=== PATIENT | female | born 1930 | race Caucasian/White ===

== ENCOUNTER → 2016-08-06 | Outpatient (REF) | payer MEDICARE, OTHER ==
[2016-08-06 18:18] LABS: PERCENT SATURATION 7.3 % (13.2-37.4)
== END ==
LOC: M LAB REF 16:43
PROVIDERS: ATTEND Internal Medicine Nephrology
DX: N18.9 Chronic kidney disease, unspecified (principal); D63.1 Anemia in chronic kidney disease

== ENCOUNTER 2016-08-19 10:47 | Outpatient (CLI) | payer MEDICARE, OTHER ==
[2016-08-19] MEDS ORDERED: IRON SUCROSE 25 MG in NS 50 ML IV ONE (12:00)
[2016-08-19] MEDS ORDERED: IRON SUCROSE 475 MG in NS 250 ML IV ONE (12:00)
[2016-08-19] MEDS ORDERED: CINA30TA PO (12:26)
[2016-08-19] MEDS ORDERED: SPIR25TA2 PO (12:26)
[2016-08-19] MEDS ORDERED: ALLO100T PO (12:26)
[2016-08-19] MEDS ORDERED: HYDR-4267 PO (12:26)
[2016-08-19] MEDS ORDERED: CARV12.5 PO (12:26)
[2016-08-19] MEDS ORDERED: ASPI325T PO (12:26)
[2016-08-19] MEDS ORDERED: ALBU17IN INH (12:26)
[2016-08-19] MEDS ORDERED: ATOR40TA PO (12:26)
[2016-08-19] MEDS ORDERED: FERR150C PO (12:26)
[2016-08-19] MEDS ORDERED: POTA10CA PO (12:26)
[2016-08-19] MEDS ORDERED: VITA200015 PO (12:26)
[2016-08-19] MEDS ORDERED: COQ-100C2 PO (12:26)
[2016-08-19] MEDS ORDERED: CALC1CAP31 PO (12:26)
[2016-08-19] MEDS ORDERED: ALBU83IN INH (12:26)
[2016-08-19] MEDS ORDERED: AMLO10TA2 PO (12:26)
[2016-08-19] MEDS ORDERED: VITA100T20 PO (12:26)
[2016-08-19] MEDS ORDERED: FURO40TA2 PO (12:26)
[2016-08-19] MEDS ORDERED: NITR4TASL SL (12:26)
[2016-08-19] MEDS ORDERED: OMEP20CA3 PO (12:45)
[2016-08-19] MEDS ORDERED: COLA100C PO (12:45)
[2016-08-19] MEDS ORDERED: OXYB10TA PO (12:45)
== END 2016-08-19 15:50 | disposition home or self-care (01) ==
LOC: M INFU 10:47
PROVIDERS: ATTEND Internal Medicine Nephrology
DX: D50.9 Iron deficiency anemia, unspecified (principal); Z79.899 Other long term (current) drug therapy; Z79.82 Long term (current) use of aspirin; Z88.8 Allergy status to other drugs, medicaments and biological substances; Z88.5 Allergy status to narcotic agent
CPT/HCPCS: 96365; 96366; J1756

== ENCOUNTER → 2017-06-11 | Outpatient (REF) | payer MEDICARE, OTHER ==
[~2017-06-11] MED LIST: ALBU17IN INH; ALBU83IN INH; ALLO100T PO; AMLO10TA2 PO; ASPI325T PO; ATOR40TA75 PO; CALC1CAP31 PO; CARV12.5 PO; CINA30TA PO; COLA100C5 PO; COQ-100C2 PO; FERR150C PO; FURO40TA2 PO; HYDR-3911 PO; NITR4TASL SL; OMEP20CA3 PO; OXYB10TA PO; POTA10CA PO; SPIR25TA2 PO; VITA100T20 PO; VITA200015 PO
[2017-06-11 14:40] LABS: CREATININE FOR GFR 2.05 MG/DL (0.55-1.02); GLOMERULAR FILTRATION RATE 24.3 (>32)
[2017-06-11 14:49] LABS: POTASSIUM SERUM 5.3 MEQ/L (3.5-5.1)
== END ==
LOC: M SFHCPLAZ 10:59
PROVIDERS: ATTEND Family Medicine
DX: R06.09 Other forms of dyspnea (principal); I25.118 Atherosclerotic heart disease of native coronary artery with other forms of angina pectoris
CPT/HCPCS: 36415; 80048; 83880; G0463

== ENCOUNTER 2017-07-15 14:02 | Emergency (ER) | payer MEDICARE, OTHER ==
[2017-07-15] MEDS: CARVedilol 6.25 MG TAB PO (15:02)
[2017-07-15] MEDS: **hydrALAZINE** 10 MG TAB PO (15:02)
[2017-07-15 15:45] LABS: HEMATOCRIT 36.1 % (36.0-47.0); HEMOGLOBIN 11.9 g/dl (12.0-16.0); MEAN CORPUSCULAR VOLUME 87.8 fl (80.0-96.0); PLATELET COUNT, AUTOMATED 251 10^3/uL (150-450); RED BLOOD COUNT 4.11 10^6/uL (4.00-5.40); RED CELL DISTRIBUTION WIDTH 14.6 % (11.5-14.5); WHITE BLOOD COUNT 8.5 10^3/uL (4.0-10.0)
[2017-07-15 16:10] LABS: ANION GAP 6 MEQ/L (8-16); BLOOD UREA NITROGEN 49 MG/DL (7-18); CALCIUM LEVEL 9.8 MG/DL (8.8-10.2); CARBON DIOXIDE LEVEL 30 MEQ/L (21-32); CHLORIDE LEVEL 102 MEQ/L (98-107); GLOMERULAR FILTRATION RATE 34.8 (>32); GLUCOSE, FASTING 170 MG/DL (83-110); SODIUM LEVEL 138 MEQ/L (136-145)
[2017-07-15 16:21] LABS: INR 0.96; PROTHROMBIN TIME 12.9 SECONDS (12.4-14.5)
== END 2017-07-15 17:12 | disposition home or self-care (01) ==
LOC: M ED 14:02
DX: S00.81XA Abrasion of other part of head, initial encounter (principal); S00.83XA Contusion of other part of head, initial encounter; W19.XXXA Unspecified fall, initial encounter; Y92.018 Other place in single-family (private) house as the place of occurrence of the external cause; Y93.89 Activity, other specified; Y99.8 Other external cause status; E11.9 Type 2 diabetes mellitus without complications; J44.9 Chronic obstructive pulmonary disease, unspecified; I25.10 Atherosclerotic heart disease of native coronary artery without angina pectoris; J45.909 Unspecified asthma, uncomplicated; Z95.0 Presence of cardiac pacemaker; Z95.5 Presence of coronary angioplasty implant and graft
CPT/HCPCS: 73564

== ENCOUNTER → 2017-07-27 | Outpatient (CLI) | payer MEDICARE, OTHER ==
[2017-07-27 14:57] LABS: CHOLESTEROL LEVEL 174 MG/DL (<200); CHOLESTEROL RISK RATIO 2.351 (<5); HDL CHOLESTEROL 74 MG/DL (>40); LDL CHOLESTEROL 65.8 MG/DL (<100); NON-HDL-C 100 MG/DL; TRIGLYCERIDES LEVEL 171 MG/DL (<150)
== END ==
LOC: M RAD 11:52
DX: I65.21 Occlusion and stenosis of right carotid artery (principal); R29.6 Repeated falls
CPT/HCPCS: 73030

== ENCOUNTER → 2017-08-09 | Outpatient (REF) | payer MEDICARE, OTHER ==
[2017-08-09 16:57] LABS: CPK CREATINE PHOSPHOKINASE 41 U/L (26-192)
[2017-08-09 17:09] LABS: MYOGLOBIN 71 NG/ML (13-71)
== END ==
LOC: M SFHCPLAZ 11:13
DX: M25.511 Pain in right shoulder (principal); R60.0 Localized edema; S00.8 Superficial injury of other parts of head; S00.83XS Contusion of other part of head, sequela
CPT/HCPCS: 82550

== ENCOUNTER → 2017-08-13 | Outpatient (CLI) | payer MEDICARE, OTHER ==
[2017-08-13 10:12] LABS: MYOGLOBIN 70 NG/ML (13-71)
[2017-08-13 10:12] LABS: CPK CREATINE PHOSPHOKINASE 32 U/L (26-192)
== END ==
LOC: M RAD 06:47
DX: M25.511 Pain in right shoulder (principal); R60.0 Localized edema
CPT/HCPCS: 73030

== ENCOUNTER 2017-11-01 13:03 | Inpatient (IN) | payer MEDICARE, OTHER ==
[2017-11-01] MEDS: HEPARIN SOD (PORCINE) 5000 UNITS/ML VIAL SC ×2 (14:00→21:17)
[2017-11-01 15:04] LABS: BASO # 0.1 10^3/uL (0.0-0.2); BASO % 0.6 % (0.0-1.0); EOS # 0.1 10^3/uL (0.0-0.50); EOS % 1.1 % (0.0-3.0); HEMATOCRIT 34.2 % (36.0-47.0); HEMOGLOBIN 10.8 g/dl (12.0-15.5); IMMATURE GRANULOCYTE % 0.7 % (0-3.0); LYMPH # 1.8 10^3/uL (1.5-4.5); LYMPH % 15.8 % (24.0-44.0); MEAN CORPUSCULAR HEMOGLOBIN 27.6 pg (27.0-33.0); MEAN CORPUSCULAR HGB CONC 31.6 g/dl (32.0-36.5); MEAN CORPUSCULAR VOLUME 87.2 fl (80.0-96.0); MONO # 0.9 10^3/uL (0.0-0.8); MONO % 8.5 % (0.0-5.0); NEUTROPHILS # 8.1 10^3/uL (1.8-7.7); NEUTROPHILS % 73.3 % (36.0-66.0); PLATELET COUNT, AUTOMATED 283 10^3/uL (150-450); RED BLOOD COUNT 3.92 10^6/uL (4.00-5.40); RED CELL DISTRIBUTION WIDTH 15.6 % (11.5-14.5); WHITE BLOOD COUNT 11.1 10^3/uL (4.0-10.0)
[2017-11-01 15:08] LABS: ANION GAP 5 MEQ/L (8-16); BLOOD UREA NITROGEN 71 MG/DL (7-18); CALCIUM LEVEL 9.7 MG/DL (8.8-10.2); CARBON DIOXIDE LEVEL 23 MEQ/L (21-32); CHLORIDE LEVEL 106 MEQ/L (98-107); CK-MB VALUE MASS 1.5 NG/ML (<3.6); CPK CREATINE PHOSPHOKINASE 41 U/L (26-192); CREATININE FOR GFR 3.26 MG/DL (0.55-1.30); GLOMERULAR FILTRATION RATE 14.2 (>32); GLUCOSE, FASTING 130 MG/DL (70-100); MB/CK RELATIVE INDEX 3.65 (< OR =4); NT-PRO BNP 8014 PG/ML (<450); SODIUM LEVEL 134 MEQ/L (136-145); TROPONIN I 0.02 NG/ML (< 0.10)
[2017-11-01] MEDS: SOD POLYSTYRENE SULFONATE SUSP 15 GM/60 ML UD PO (15:15)
[2017-11-01] MEDS: ALBUTEROL SULFATE 2.5 MG/0.5 ML INH NEB SOLN NEB (15:23)
[2017-11-01] MEDS: DEXTROSE 50% 50 ML SYRINGE IV (15:25)
[2017-11-01] MEDS: HumuLIN R (REGULAR) INSULIN (NovoLIN R) **100U/ML** PER UNIT SC (15:25)
[2017-11-01] MEDS: IPRATROPIUM 0.5MG/ALBUTEROL 2.5MG INH SOL UD 3ML (DUONEB)(J7620) NEB ×2 (16:00→20:46)
[2017-11-01] MEDS: FUROSEMIDE 40 MG/4 ML VIAL (J1940) IV (16:26)
[2017-11-01] MEDS ORDERED: ONDANSETRON 4MG/2ML VIAL (J2405) IV (16:30)
[2017-11-01] MEDS ORDERED: ACETAMINOPHEN TAB 650MG DOSE (2X325MG) PO (16:30)
[2017-11-01 16:58] LABS: ALBUMIN 3.4 GM/DL (3.2-5.2); PHOSPHORUS LEVEL 4.5 MG/DL (2.5-4.9)
[2017-11-01] MEDS ORDERED: NITROGLYCERIN 0.4 MG SUBL TABLET SL (17:00)
[2017-11-01] MEDS: **hydrALAZINE** 50 MG TAB PO ×2 (17:00→20:44)
[2017-11-01] MEDS: amLODIPine 10 MG TAB PO (20:14)
[2017-11-01] MEDS: OMEPRAZOLE 20 MG CAP PO (20:16)
[2017-11-01] MEDS: CARVedilol 12.5 MG TAB PO (20:17)
[2017-11-01] MEDS: oxyBUTYnin *DITROPAN XL* 5 MG TABCR PO (20:49)
[2017-11-01] MEDS: LevoFLOXacin IV 500 MG in APPROPRIATE DILUENT 1 EA IV (20:49)
[2017-11-01 20:55] LABS: ALBUMIN 3.1 GM/DL (3.2-5.2); ANION GAP 9 MEQ/L (8-16); BLOOD UREA NITROGEN 70 MG/DL (7-18); CALCIUM LEVEL 9.2 MG/DL (8.8-10.2); CARBON DIOXIDE LEVEL 21 MEQ/L (21-32); CHLORIDE LEVEL 107 MEQ/L (98-107); CREATININE FOR GFR 3.49 MG/DL (0.55-1.30); GLOMERULAR FILTRATION RATE 13.1 (>32); GLUCOSE, FASTING 170 MG/DL (70-100); PHOSPHORUS LEVEL 4.4 MG/DL (2.5-4.9); SODIUM LEVEL 137 MEQ/L (136-145)
[2017-11-01 20:56] LABS: POTASSIUM SERUM 5.3 MEQ/L (3.5-5.1)
[2017-11-02] MEDS: IPRATROPIUM 0.5MG/ALBUTEROL 2.5MG INH SOL UD 3ML (DUONEB)(J7620) NEB ×4 (05:23→16:00)
[2017-11-02] MEDS: HEPARIN SOD (PORCINE) 5000 UNITS/ML VIAL SC ×3 (05:31→21:35)
[2017-11-02] MEDS: SOD POLYSTYRENE SULFONATE SUSP 15 GM/60 ML UD PO (05:52)
[2017-11-02 06:51] LABS: HEMATOCRIT 32.7 % (36.0-47.0); HEMOGLOBIN 10.4 g/dl (12.0-15.5); MEAN CORPUSCULAR HEMOGLOBIN 27.2 pg (27.0-33.0); MEAN CORPUSCULAR HGB CONC 31.8 g/dl (32.0-36.5); MEAN CORPUSCULAR VOLUME 85.4 fl (80.0-96.0); PLATELET COUNT, AUTOMATED 244 10^3/uL (150-450); RED BLOOD COUNT 3.83 10^6/uL (4.00-5.40); RED CELL DISTRIBUTION WIDTH 15.4 % (11.5-14.5); WHITE BLOOD COUNT 10.5 10^3/uL (4.0-10.0)
[2017-11-02 07:07] LABS: ALBUMIN 2.9 GM/DL (3.2-5.2); ANION GAP 8 MEQ/L (8-16); BLOOD UREA NITROGEN 67 MG/DL (7-18); CALCIUM LEVEL 9.6 MG/DL (8.8-10.2); CARBON DIOXIDE LEVEL 23 MEQ/L (21-32); CHLORIDE LEVEL 109 MEQ/L (98-107); CREATININE FOR GFR 2.99 MG/DL (0.55-1.30); GLOMERULAR FILTRATION RATE 15.7 (>32); GLUCOSE, FASTING 122 MG/DL (70-100); PHOSPHORUS LEVEL 4.2 MG/DL (2.5-4.9); POTASSIUM SERUM 4.1 MEQ/L (3.5-5.1); SODIUM LEVEL 140 MEQ/L (136-145)
[2017-11-02] MEDS: VENLAFAXINE **XR** 75MG CAPSULE PO (08:33)
[2017-11-02] MEDS: OMEPRAZOLE 20 MG CAP PO (08:33)
[2017-11-02] MEDS: ASPIRIN 325 MG TAB PO (08:33)
[2017-11-02] MEDS: ATORVASTATIN 20 MG TAB PO (08:33)
[2017-11-02] MEDS: amLODIPine 10 MG TAB PO (08:34)
[2017-11-02] MEDS: ALLOPURINOL 100 MG TAB PO (08:34)
[2017-11-02] MEDS: **hydrALAZINE** 50 MG TAB PO ×4 (08:34→21:33)
[2017-11-02] MEDS: CARVedilol 12.5 MG TAB PO ×2 (08:34→21:34)
[2017-11-02] MEDS: oxyBUTYnin *DITROPAN XL* 5 MG TABCR PO (21:34)
[2017-11-03 05:08] LABS: HEMATOCRIT 32.7 % (36.0-47.0); HEMOGLOBIN 10.4 g/dl (12.0-15.5); MEAN CORPUSCULAR HEMOGLOBIN 27.1 pg (27.0-33.0); MEAN CORPUSCULAR HGB CONC 31.8 g/dl (32.0-36.5); MEAN CORPUSCULAR VOLUME 85.2 fl (80.0-96.0); PLATELET COUNT, AUTOMATED 232 10^3/uL (150-450); RED BLOOD COUNT 3.84 10^6/uL (4.00-5.40); RED CELL DISTRIBUTION WIDTH 15.4 % (11.5-14.5)
[2017-11-03] MEDS: HEPARIN SOD (PORCINE) 5000 UNITS/ML VIAL SC ×3 (05:20→22:00)
[2017-11-03 05:23] LABS: ALBUMIN 2.7 GM/DL (3.2-5.2); ANION GAP 7 MEQ/L (8-16); BLOOD UREA NITROGEN 54 MG/DL (7-18); CALCIUM LEVEL 9.3 MG/DL (8.8-10.2); CARBON DIOXIDE LEVEL 25 MEQ/L (21-32); CHLORIDE LEVEL 110 MEQ/L (98-107); CREATININE FOR GFR 2.05 MG/DL (0.55-1.30); GLOMERULAR FILTRATION RATE 24.3 (>32); GLUCOSE, FASTING 124 MG/DL (70-100); PHOSPHORUS LEVEL 3.4 MG/DL (2.5-4.9); SODIUM LEVEL 142 MEQ/L (136-145)
[2017-11-03] MEDS: IPRATROPIUM 0.5MG/ALBUTEROL 2.5MG INH SOL UD 3ML (DUONEB)(J7620) NEB ×3 (07:22→15:13)
[2017-11-03] MEDS: ASPIRIN 325 MG TAB PO (09:30)
[2017-11-03] MEDS: amLODIPine 10 MG TAB PO (09:30)
[2017-11-03] MEDS: **hydrALAZINE** 50 MG TAB PO ×4 (09:31→21:59)
[2017-11-03] MEDS: ATORVASTATIN 20 MG TAB PO (09:31)
[2017-11-03] MEDS: ALLOPURINOL 100 MG TAB PO (09:31)
[2017-11-03] MEDS: OMEPRAZOLE 20 MG CAP PO (09:31)
[2017-11-03] MEDS: VENLAFAXINE **XR** 75MG CAPSULE PO (09:31)
[2017-11-03] MEDS: CARVedilol 12.5 MG TAB PO ×2 (09:32→22:00)
[2017-11-03] MEDS ORDERED: SLF 3 ML SYR IV (11:45)
[2017-11-03] MEDS: SLF 3 ML SYR IV ×2 (14:00→22:00)
[2017-11-03] MEDS: LevoFLOXacin 250 MG TABLET PO (17:57)
[2017-11-03] MEDS ORDERED: LevoFLOXacin IV 250 MG in APPROPRIATE DILUENT 1 EA IV (18:00)
[2017-11-03] MEDS: oxyBUTYnin *DITROPAN XL* 5 MG TABCR PO (22:00)
[2017-11-04] MEDS: SLF 3 ML SYR IV ×2 (05:31→14:00)
[2017-11-04] MEDS: HEPARIN SOD (PORCINE) 5000 UNITS/ML VIAL SC (05:31)
[2017-11-04 05:48] LABS: HEMATOCRIT 30.8 % (36.0-47.0); HEMOGLOBIN 9.6 g/dl (12.0-15.5); MEAN CORPUSCULAR HEMOGLOBIN 26.7 pg (27.0-33.0); MEAN CORPUSCULAR HGB CONC 31.2 g/dl (32.0-36.5); MEAN CORPUSCULAR VOLUME 85.8 fl (80.0-96.0); PLATELET COUNT, AUTOMATED 242 10^3/uL (150-450); RED BLOOD COUNT 3.59 10^6/uL (4.00-5.40); RED CELL DISTRIBUTION WIDTH 15.3 % (11.5-14.5); WHITE BLOOD COUNT 9.2 10^3/uL (4.0-10.0)
[2017-11-04 06:06] LABS: ALBUMIN 2.6 GM/DL (3.2-5.2); ANION GAP 6 MEQ/L (8-16); BLOOD UREA NITROGEN 53 MG/DL (7-18); CALCIUM LEVEL 9.2 MG/DL (8.8-10.2); CARBON DIOXIDE LEVEL 26 MEQ/L (21-32); CHLORIDE LEVEL 111 MEQ/L (98-107); CREATININE FOR GFR 1.96 MG/DL (0.55-1.30); GLOMERULAR FILTRATION RATE 25.6 (>32); GLUCOSE, FASTING 142 MG/DL (70-100); NT-PRO BNP 4410 PG/ML (<450); PHOSPHORUS LEVEL 3.3 MG/DL (2.5-4.9); POTASSIUM SERUM 4.2 MEQ/L (3.5-5.1); SODIUM LEVEL 143 MEQ/L (136-145)
[2017-11-04] MEDS: IPRATROPIUM 0.5MG/ALBUTEROL 2.5MG INH SOL UD 3ML (DUONEB)(J7620) NEB ×2 (07:42)
[2017-11-04] MEDS: amLODIPine 10 MG TAB PO (09:05)
[2017-11-04] MEDS: OMEPRAZOLE 20 MG CAP PO (09:05)
[2017-11-04] MEDS: ASPIRIN 325 MG TAB PO (09:05)
[2017-11-04] MEDS: CARVedilol 12.5 MG TAB PO (09:05)
[2017-11-04] MEDS: ATORVASTATIN 20 MG TAB PO (09:05)
[2017-11-04] MEDS: VENLAFAXINE **XR** 75MG CAPSULE PO (09:05)
[2017-11-04] MEDS: ALLOPURINOL 100 MG TAB PO (09:05)
[2017-11-04] MEDS: **hydrALAZINE** 50 MG TAB PO (09:06)
[2017-11-04] MEDS: FUROSEMIDE 20 MG TAB PO (11:41)
== END 2017-11-04 14:28 | disposition home health service (06) | DRG 682 ==
LOC: M PCU 16:20 → M ED 13:03 → M ED INP 16:20
DX: N17.9 Acute kidney failure, unspecified (principal); J18.9 Pneumonia, unspecified organism; I50.31 Acute diastolic (congestive) heart failure; I13.0 Hypertensive heart and chronic kidney disease with heart failure and stage 1 through stage 4 chronic kidney disease, or unspecified chronic kidney disease; E87.5 Hyperkalemia; N18.3 Chronic kidney disease, stage 3 (moderate); R00.1 Bradycardia, unspecified; R91.8 Other nonspecific abnormal finding of lung field; E78.5 Hyperlipidemia, unspecified; I73.9 Peripheral vascular disease, unspecified; Z90.710 Acquired absence of both cervix and uterus; Z90.722 Acquired absence of ovaries, bilateral; Z95.0 Presence of cardiac pacemaker; Z98.49 Cataract extraction status, unspecified eye; Z85.820 Personal history of malignant melanoma of skin; Z79.899 Other long term (current) drug therapy; Z88.8 Allergy status to other drugs, medicaments and biological substances; Z88.5 Allergy status to narcotic agent; Z86.73 Personal history of transient ischemic attack (TIA), and cerebral infarction without residual deficits

== ENCOUNTER → 2017-11-10 | Outpatient (REF) | payer MEDICARE, OTHER ==
[2017-11-10 16:08] LABS: BASO # 0.1 10^3/uL (0.0-0.2); BASO % 0.5 % (0.0-1.0); EOS # 0.2 10^3/uL (0.0-0.50); EOS % 1.1 % (0.0-3.0); HEMATOCRIT 36.5 % (36.0-47.0); HEMOGLOBIN 11.5 g/dl (12.0-15.5); IMMATURE GRANULOCYTE % 0.5 % (0-3.0); LYMPH # 1.4 10^3/uL (1.5-4.5); LYMPH % 9.1 % (24.0-44.0); MEAN CORPUSCULAR HGB CONC 31.5 g/dl (32.0-36.5); MEAN CORPUSCULAR VOLUME 85.7 fl (80.0-96.0); MONO # 1.1 10^3/uL (0.0-0.8); NEUTROPHILS # 12.3 10^3/uL (1.8-7.7); NEUTROPHILS % 81.8 % (36.0-66.0); PLATELET COUNT, AUTOMATED 306 10^3/uL (150-450); RED BLOOD COUNT 4.26 10^6/uL (4.00-5.40); RED CELL DISTRIBUTION WIDTH 15.9 % (11.5-14.5); WHITE BLOOD COUNT 15.1 10^3/uL (4.0-10.0)
[2017-11-10 16:32] LABS: TOTAL 25(OH) VITAMIN D 20.5 NG/ML (30.0-100.0)
[2017-11-10 16:33] LABS: ANION GAP 10 MEQ/L (8-16); BLOOD UREA NITROGEN 40 MG/DL (7-18); CALCIUM LEVEL 9.9 MG/DL (8.8-10.2); CARBON DIOXIDE LEVEL 29 MEQ/L (21-32); CHLORIDE LEVEL 104 MEQ/L (98-107); CREATININE FOR GFR 1.79 MG/DL (0.55-1.30); FREE T4 1.01 NG/DL (0.76-1.46); GLOMERULAR FILTRATION RATE 28.4 (>32); GLUCOSE, FASTING 131 MG/DL (70-100); NT-PRO BNP 1461 PG/ML (<450); POTASSIUM SERUM 3.7 MEQ/L (3.5-5.1); SODIUM LEVEL 143 MEQ/L (136-145); VITAMIN B12 LEVEL 1620 PG/ML (247-911)
== END ==
LOC: M SFHCPLAZ 12:31
DX: I50.9 Heart failure, unspecified (principal); D64.9 Anemia, unspecified; R41.3 Other amnesia; N17.9 Acute kidney failure, unspecified; Z79.899 Other long term (current) drug therapy
CPT/HCPCS: 84443

== ENCOUNTER 2017-12-27 08:44 | Emergency (ER) | payer MEDICARE, OTHER | END 2017-12-27 11:30 | disposition home or self-care (01) | LOC: M ED 08:44 | DX: S29.011A Strain of muscle and tendon of front wall of thorax, initial encounter (principal); W19.XXXA Unspecified fall, initial encounter; Y92.099 Unspecified place in other non-institutional residence as the place of occurrence of the external cause; Y93.89 Activity, other specified; Y99.9 Unspecified external cause status; I48.91 Unspecified atrial fibrillation; I10 Essential (primary) hypertension; J44.9 Chronic obstructive pulmonary disease, unspecified; Z95.0 Presence of cardiac pacemaker; M85.80 Other specified disorders of bone density and structure, unspecified site; Z79.82 Long term (current) use of aspirin; Z79.899 Other long term (current) drug therapy; Z88.5 Allergy status to narcotic agent; Z88.8 Allergy status to other drugs, medicaments and biological substances | CPT/HCPCS: 71101 ==

== ENCOUNTER 2018-01-05 13:35 | Inpatient (IN) | payer MEDICARE, OTHER ==
[2018-01-05] MEDS: NS 1,000 ML IV (14:35)
[2018-01-05] MEDS: ASPIRIN 81 MG CHEW TABLET PO (14:35)
[2018-01-05 15:12] LABS: BASO % 0.2 % (0.0-1.0); EOS % 0.1 % (0.0-3.0); HEMOGLOBIN 11.8 g/dl (12.0-15.5); LYMPH # 1.7 10^3/uL (1.5-4.5); LYMPH % 12.6 % (24.0-44.0); MEAN CORPUSCULAR HEMOGLOBIN 25.2 pg (27.0-33.0); MEAN CORPUSCULAR HGB CONC 30.3 g/dl (32.0-36.5); MEAN CORPUSCULAR VOLUME 83.2 fl (80.0-96.0); MONO # 1.2 10^3/uL (0.0-0.8); NEUTROPHILS # 10.3 10^3/uL (1.8-7.7); NEUTROPHILS % 77.1 % (36.0-66.0); PLATELET COUNT, AUTOMATED 311 10^3/uL (150-450); RED BLOOD COUNT 4.69 10^6/uL (4.00-5.40); RED CELL DISTRIBUTION WIDTH 17.1 % (11.5-14.5); WHITE BLOOD COUNT 13.3 10^3/uL (4.0-10.0)
[2018-01-05 15:23] LABS: INR 0.98; PROTHROMBIN TIME 13.1 SECONDS (12.1-14.4)
[2018-01-05 15:39] LABS: LACTIC ACID SEPSIS PROTOCOL 1.2 MMOL/L (0.4-2.0)
[2018-01-05 15:40] LABS: ALBUMIN 3.1 GM/DL (3.2-5.2); ALBUMIN/GLOBULIN RATIO 0.91 (1.00-1.93); ALKALINE PHOSPHATASE 92 U/L (45-117); ALT/SGPT 32 U/L (12-78); ANION GAP 6 MEQ/L (8-16); AST/SGOT 16 U/L (7-37); BILIRUBIN,DIRECT 0.2 MG/DL (0.0-0.2); BILIRUBIN,TOTAL 0.4 MG/DL (0.2-1.0); BLOOD UREA NITROGEN 57 MG/DL (7-18); CALCIUM LEVEL 8.8 MG/DL (8.8-10.2); CARBON DIOXIDE LEVEL 33 MEQ/L (21-32); CHLORIDE LEVEL 105 MEQ/L (98-107); CPK CREATINE PHOSPHOKINASE 26 U/L (26-192); CREATININE FOR GFR 1.64 MG/DL (0.55-1.30); GLOMERULAR FILTRATION RATE 31.4 (>32); GLUCOSE, FASTING 134 MG/DL (70-100); MB/CK RELATIVE INDEX 3.84 (< OR =4); POTASSIUM SERUM 3.9 MEQ/L (3.5-5.1); SODIUM LEVEL 144 MEQ/L (136-145); TOTAL PROTEIN 6.5 GM/DL (6.4-8.2); TROPONIN I < 0.02 NG/ML (< 0.10)
[2018-01-05] MEDS: IPRATROPIUM 0.5MG/ALBUTEROL 2.5MG INH SOL UD 3ML (DUONEB)(J7620) NEB ×2 (16:01→20:00)
[2018-01-05 16:05] LABS: ABG BASE EXCESS 2.5 (-2.0-2.0); ABG HCO3 27.9 MEQ/L (22.0-26.0); ABG PARTIAL PRESSURE O2 86.3 mmHg (75.0-100.0); ABG STANDARD HCO3 26.7 MEQ/L (22.0-26.0); ABG TOTAL CO2 29.3 MEQ/L (23.0-31.0)
[2018-01-05 17:08] LABS: NT-PRO BNP 3169 PG/ML (<450)
[2018-01-05] MEDS ORDERED: NITROGLYCERIN 0.4 MG SUBL TABLET SL (18:30)
[2018-01-05] MEDS ORDERED: ALBUTEROL SULFATE 2.5 MG/0.5 ML INH NEB SOLN NEB (18:30)
[2018-01-05] MEDS ORDERED: PIPERACILLIN/TAZOBACTAM SOD 3.375 GM in D5W MINI-BAG PLUS 50 ML IV (19:30)
[2018-01-05] MEDS ORDERED: cefTRIAXone SOD 1 GM in D5W MINI-BAG PLUS 50 ML IV (20:00)
[2018-01-05] MEDS: ADVAIR HFA 115/21MCG INHALER INH (20:54)
[2018-01-05] MEDS: FUROSEMIDE 40 MG/4 ML VIAL (J1940) IV (21:12)
[2018-01-05] MEDS: **hydrALAZINE** 50 MG TAB PO (21:18)
[2018-01-05] MEDS: oxyBUTYnin *DITROPAN XL* 5 MG TABCR PO (21:19)
[2018-01-05] MEDS: CARVedilol 12.5 MG TAB PO (21:19)
[2018-01-05] MEDS: POTASSIUM CHLORIDE 10 MEQ SR TABLET PO (21:20)
[2018-01-05] MEDS: HEPARIN SOD (PORCINE) 5000 UNITS/ML VIAL SC (21:20)
[2018-01-05] MEDS: PIPERACILLIN/TAZOBACTAM SOD 2.25 GM in D5W MINI-BAG PLUS 50 ML IV (22:23)
[2018-01-05] MEDS: AZITHROMYCIN INJ 500 MG, VIAL MATE ADAPTER 1 EACH in D5W 250 ML IV (23:25)
[2018-01-06] MEDS: IPRATROPIUM 0.5MG/ALBUTEROL 2.5MG INH SOL UD 3ML (DUONEB)(J7620) NEB ×4 (02:22→20:17)
[2018-01-06] MEDS: PIPERACILLIN/TAZOBACTAM SOD 2.25 GM in D5W MINI-BAG PLUS 50 ML IV ×3 (04:41→21:18)
[2018-01-06] MEDS: HEPARIN SOD (PORCINE) 5000 UNITS/ML VIAL SC ×3 (05:27→21:19)
[2018-01-06 05:37] LABS: BASO % 0.3 % (0.0-1.0); EOS # 0.1 10^3/uL (0.0-0.50); EOS % 0.7 % (0.0-3.0); HEMATOCRIT 37.3 % (36.0-47.0); HEMOGLOBIN 11.3 g/dl (12.0-15.5); LYMPH # 1.6 10^3/uL (1.5-4.5); LYMPH % 16.6 % (24.0-44.0); MEAN CORPUSCULAR HEMOGLOBIN 24.9 pg (27.0-33.0); MEAN CORPUSCULAR HGB CONC 30.3 g/dl (32.0-36.5); MEAN CORPUSCULAR VOLUME 82.3 fl (80.0-96.0); MONO # 0.8 10^3/uL (0.0-0.8); MONO % 8.9 % (0.0-5.0); NEUTROPHILS # 6.8 10^3/uL (1.8-7.7); NEUTROPHILS % 72.5 % (36.0-66.0); PLATELET COUNT, AUTOMATED 283 10^3/uL (150-450); RED BLOOD COUNT 4.53 10^6/uL (4.00-5.40); WHITE BLOOD COUNT 9.4 10^3/uL (4.0-10.0)
[2018-01-06 06:00] LABS: ANION GAP 7 MEQ/L (8-16); BLOOD UREA NITROGEN 47 MG/DL (7-18); CARBON DIOXIDE LEVEL 33 MEQ/L (21-32); CHLORIDE LEVEL 105 MEQ/L (98-107); CREATININE FOR GFR 1.48 MG/DL (0.55-1.30); GLOMERULAR FILTRATION RATE 35.4 (>32); GLUCOSE, FASTING 133 MG/DL (70-100); POTASSIUM SERUM 3.5 MEQ/L (3.5-5.1); SODIUM LEVEL 145 MEQ/L (136-145)
[2018-01-06] MEDS: ADVAIR HFA 115/21MCG INHALER INH ×2 (08:28→20:18)
[2018-01-06] MEDS: ASPIRIN 325 MG TAB PO (09:59)
[2018-01-06] MEDS: OMEPRAZOLE 20 MG CAP PO (10:00)
[2018-01-06] MEDS: ALLOPURINOL 100 MG TAB PO (10:00)
[2018-01-06] MEDS: **hydrALAZINE** 50 MG TAB PO ×4 (10:00→21:21)
[2018-01-06] MEDS: CARVedilol 12.5 MG TAB PO ×2 (10:00→21:21)
[2018-01-06] MEDS: FUROSEMIDE 40 MG TAB PO ×2 (10:01→16:56)
[2018-01-06] MEDS: POTASSIUM CHLORIDE 10 MEQ SR TABLET PO ×2 (10:01→21:19)
[2018-01-06] MEDS: FERROUS GLUCONATE 324 MG TAB PO (10:01)
[2018-01-06] MEDS: TORSEMIDE (DEMADEX) 50 MG PER 1/2 TAB PO (11:28)
[2018-01-06] MEDS: DULoxetine 20 MG CAP (CYMBALTA) PO (11:28)
[2018-01-06] MEDS: amLODIPine 10 MG TAB PO (11:28)
[2018-01-06] MEDS: ATORVASTATIN 20 MG TAB PO (11:30)
[2018-01-06 21:13] LABS: BEDSIDE GLUCOSE 160 MG/DL (83-110)
[2018-01-06] MEDS: oxyBUTYnin *DITROPAN XL* 5 MG TABCR PO (21:19)
[2018-01-06] MEDS: AZITHROMYCIN INJ 500 MG, VIAL MATE ADAPTER 1 EACH in D5W 250 ML IV (22:43)
[2018-01-07] MEDS: IPRATROPIUM 0.5MG/ALBUTEROL 2.5MG INH SOL UD 3ML (DUONEB)(J7620) NEB ×4 (01:13→20:00)
[2018-01-07] MEDS: HEPARIN SOD (PORCINE) 5000 UNITS/ML VIAL SC ×3 (05:21→21:32)
[2018-01-07] MEDS: PIPERACILLIN/TAZOBACTAM SOD 2.25 GM in D5W MINI-BAG PLUS 50 ML IV ×3 (05:21→20:02)
[2018-01-07] MEDS: ADVAIR HFA 115/21MCG INHALER INH ×2 (07:18→20:23)
[2018-01-07] MEDS: TORSEMIDE (DEMADEX) 50 MG PER 1/2 TAB PO (09:00)
[2018-01-07] MEDS: ASPIRIN 325 MG TAB PO (10:11)
[2018-01-07] MEDS: OMEPRAZOLE 20 MG CAP PO (10:11)
[2018-01-07] MEDS: POTASSIUM CHLORIDE 10 MEQ SR TABLET PO ×2 (10:12→21:31)
[2018-01-07] MEDS: ALLOPURINOL 100 MG TAB PO (10:12)
[2018-01-07] MEDS: DULoxetine 20 MG CAP (CYMBALTA) PO (10:12)
[2018-01-07] MEDS: ATORVASTATIN 20 MG TAB PO (10:12)
[2018-01-07] MEDS: FUROSEMIDE 40 MG TAB PO ×2 (10:13→17:51)
[2018-01-07] MEDS: **hydrALAZINE** 50 MG TAB PO ×4 (10:13→21:32)
[2018-01-07] MEDS: amLODIPine 10 MG TAB PO (10:13)
[2018-01-07] MEDS: FERROUS GLUCONATE 324 MG TAB PO (10:13)
[2018-01-07] MEDS: CARVedilol 12.5 MG TAB PO ×2 (10:14→21:32)
[2018-01-07] MEDS: oxyBUTYnin *DITROPAN XL* 5 MG TABCR PO (21:31)
[2018-01-07] MEDS: AZITHROMYCIN INJ 500 MG, VIAL MATE ADAPTER 1 EACH in D5W 250 ML IV (21:31)
[2018-01-08] MEDS: IPRATROPIUM 0.5MG/ALBUTEROL 2.5MG INH SOL UD 3ML (DUONEB)(J7620) NEB ×4 (01:59→20:00)
[2018-01-08] MEDS: PIPERACILLIN/TAZOBACTAM SOD 2.25 GM in D5W MINI-BAG PLUS 50 ML IV ×3 (04:22→20:28)
[2018-01-08] MEDS: HEPARIN SOD (PORCINE) 5000 UNITS/ML VIAL SC ×3 (05:52→21:24)
[2018-01-08] MEDS: ADVAIR HFA 115/21MCG INHALER INH ×2 (07:59→20:23)
[2018-01-08] MEDS: ASPIRIN 325 MG TAB PO (10:11)
[2018-01-08] MEDS: **hydrALAZINE** 50 MG TAB PO ×4 (10:11→20:30)
[2018-01-08] MEDS: ATORVASTATIN 20 MG TAB PO (10:11)
[2018-01-08] MEDS: CARVedilol 12.5 MG TAB PO ×2 (10:14→20:30)
[2018-01-08] MEDS: OMEPRAZOLE 20 MG CAP PO (10:15)
[2018-01-08] MEDS: POTASSIUM CHLORIDE 10 MEQ SR TABLET PO ×2 (10:15→20:29)
[2018-01-08] MEDS: FUROSEMIDE 40 MG TAB PO ×2 (10:15→16:12)
[2018-01-08] MEDS: FERROUS GLUCONATE 324 MG TAB PO (10:15)
[2018-01-08] MEDS: ALLOPURINOL 100 MG TAB PO (10:15)
[2018-01-08 10:54] LABS: BASO # 0.1 10^3/uL (0.0-0.2); BASO % 0.5 % (0.0-1.0); EOS # 0.2 10^3/uL (0.0-0.50); EOS % 1.9 % (0.0-3.0); HEMATOCRIT 37.5 % (36.0-47.0); HEMOGLOBIN 11.7 g/dl (12.0-15.5); IMMATURE GRANULOCYTE % 1.7 % (0-3.0); LYMPH # 1.7 10^3/uL (1.5-4.5); LYMPH % 14.8 % (24.0-44.0); MEAN CORPUSCULAR HEMOGLOBIN 25.3 pg (27.0-33.0); MEAN CORPUSCULAR HGB CONC 31.2 g/dl (32.0-36.5); MONO # 0.8 10^3/uL (0.0-0.8); MONO % 6.9 % (0.0-5.0); NEUTROPHILS # 8.5 10^3/uL (1.8-7.7); NEUTROPHILS % 74.2 % (36.0-66.0); PLATELET COUNT, AUTOMATED 313 10^3/uL (150-450); RED BLOOD COUNT 4.63 10^6/uL (4.00-5.40); RED CELL DISTRIBUTION WIDTH 17.1 % (11.5-14.5); WHITE BLOOD COUNT 11.4 10^3/uL (4.0-10.0)
[2018-01-08 11:20] LABS: ANION GAP 7 MEQ/L (8-16); BLOOD UREA NITROGEN 41 MG/DL (7-18); CALCIUM LEVEL 9.2 MG/DL (8.8-10.2); CARBON DIOXIDE LEVEL 33 MEQ/L (21-32); CHLORIDE LEVEL 100 MEQ/L (98-107); CREATININE FOR GFR 1.42 MG/DL (0.55-1.30); GLOMERULAR FILTRATION RATE 37.1 (>32); GLUCOSE, FASTING 156 MG/DL (70-100); POTASSIUM SERUM 4.1 MEQ/L (3.5-5.1); SODIUM LEVEL 140 MEQ/L (136-145)
[2018-01-08] MEDS: DULoxetine 20 MG CAP (CYMBALTA) PO (12:37)
[2018-01-08] MEDS: amLODIPine 10 MG TAB PO (12:37)
[2018-01-08] MEDS: MIRALAX *UNIT DOSE* 17GM PACKET PO (20:29)
[2018-01-08] MEDS: oxyBUTYnin *DITROPAN XL* 5 MG TABCR PO (20:29)
[2018-01-08] MEDS: AZITHROMYCIN INJ 500 MG, VIAL MATE ADAPTER 1 EACH in D5W 250 ML IV (21:24)
[2018-01-09] MEDS: IPRATROPIUM 0.5MG/ALBUTEROL 2.5MG INH SOL UD 3ML (DUONEB)(J7620) NEB ×4 (01:03→20:00)
[2018-01-09] MEDS: PIPERACILLIN/TAZOBACTAM SOD 2.25 GM in D5W MINI-BAG PLUS 50 ML IV ×2 (04:12→12:00)
[2018-01-09] MEDS: HEPARIN SOD (PORCINE) 5000 UNITS/ML VIAL SC ×3 (05:44→21:44)
[2018-01-09 05:47] LABS: HEMATOCRIT 39.9 % (36.0-47.0); HEMOGLOBIN 12.5 g/dl (12.0-15.5); MEAN CORPUSCULAR HGB CONC 31.3 g/dl (32.0-36.5); MEAN CORPUSCULAR VOLUME 79.6 fl (80.0-96.0); PLATELET COUNT, AUTOMATED 220 10^3/uL (150-450); RED BLOOD COUNT 5.01 10^6/uL (4.00-5.40); RED CELL DISTRIBUTION WIDTH 17.3 % (11.5-14.5); WHITE BLOOD COUNT 13.8 10^3/uL (4.0-10.0)
[2018-01-09] MEDS: MIRALAX *UNIT DOSE* 17GM PACKET PO (05:56)
[2018-01-09 06:02] LABS: ANION GAP 10 MEQ/L (8-16); BLOOD UREA NITROGEN 40 MG/DL (7-18); CALCIUM LEVEL 9.5 MG/DL (8.8-10.2); CARBON DIOXIDE LEVEL 29 MEQ/L (21-32); CHLORIDE LEVEL 100 MEQ/L (98-107); CREATININE FOR GFR 1.43 MG/DL (0.55-1.30); GLOMERULAR FILTRATION RATE 36.8 (>32); GLUCOSE, FASTING 109 MG/DL (70-100); SODIUM LEVEL 139 MEQ/L (136-145)
[2018-01-09] MEDS: ADVAIR HFA 115/21MCG INHALER INH ×2 (07:49→21:39)
[2018-01-09] MEDS: **hydrALAZINE** 50 MG TAB PO ×4 (09:08→21:45)
[2018-01-09] MEDS: ASPIRIN 325 MG TAB PO (09:09)
[2018-01-09] MEDS: FUROSEMIDE 40 MG TAB PO ×2 (09:09→17:21)
[2018-01-09] MEDS: DULoxetine 20 MG CAP (CYMBALTA) PO (09:09)
[2018-01-09] MEDS: FERROUS GLUCONATE 324 MG TAB PO (09:09)
[2018-01-09] MEDS: CARVedilol 12.5 MG TAB PO ×2 (09:09→21:45)
[2018-01-09] MEDS: POTASSIUM CHLORIDE 10 MEQ SR TABLET PO ×2 (09:10→21:45)
[2018-01-09] MEDS: OMEPRAZOLE 20 MG CAP PO (09:10)
[2018-01-09] MEDS: ATORVASTATIN 20 MG TAB PO (09:10)
[2018-01-09] MEDS: ALLOPURINOL 100 MG TAB PO (09:10)
[2018-01-09] MEDS: amLODIPine 10 MG TAB PO (12:27)
[2018-01-09] MEDS: AUGMENTIN 500 MG TAB PO ×2 (13:43→21:45)
[2018-01-09] MEDS: AZITHROMYCIN INJ 500 MG, VIAL MATE ADAPTER 1 EACH in D5W 250 ML IV (21:00)
[2018-01-09] MEDS: oxyBUTYnin *DITROPAN XL* 5 MG TABCR PO (21:44)
[2018-01-09] MEDS: AZITHROMYCIN 250 MG TAB PO (22:40)
[2018-01-10] MEDS: IPRATROPIUM 0.5MG/ALBUTEROL 2.5MG INH SOL UD 3ML (DUONEB)(J7620) NEB ×4 (02:00→20:00)
[2018-01-10] MEDS: HEPARIN SOD (PORCINE) 5000 UNITS/ML VIAL SC ×3 (05:43→21:16)
[2018-01-10 06:15] LABS: HEMATOCRIT 38.6 % (36.0-47.0); HEMOGLOBIN 11.9 g/dl (12.0-15.5); MEAN CORPUSCULAR HEMOGLOBIN 24.6 pg (27.0-33.0); MEAN CORPUSCULAR HGB CONC 30.8 g/dl (32.0-36.5); MEAN CORPUSCULAR VOLUME 79.8 fl (80.0-96.0); PLATELET COUNT, AUTOMATED 284 10^3/uL (150-450); RED BLOOD COUNT 4.84 10^6/uL (4.00-5.40); RED CELL DISTRIBUTION WIDTH 17.2 % (11.5-14.5); WHITE BLOOD COUNT 13.9 10^3/uL (4.0-10.0)
[2018-01-10 06:44] LABS: ANION GAP 5 MEQ/L (8-16); BLOOD UREA NITROGEN 35 MG/DL (7-18); CALCIUM LEVEL 9.7 MG/DL (8.8-10.2); CARBON DIOXIDE LEVEL 33 MEQ/L (21-32); CHLORIDE LEVEL 101 MEQ/L (98-107); CREATININE FOR GFR 1.42 MG/DL (0.55-1.30); GLOMERULAR FILTRATION RATE 37.1 (>32); GLUCOSE, FASTING 122 MG/DL (70-100); POTASSIUM SERUM 4.2 MEQ/L (3.5-5.1); SODIUM LEVEL 139 MEQ/L (136-145)
[2018-01-10] MEDS: ADVAIR HFA 115/21MCG INHALER INH ×2 (07:15→21:58)
[2018-01-10] MEDS: ASPIRIN 325 MG TAB PO (08:46)
[2018-01-10] MEDS: AUGMENTIN 500 MG TAB PO ×2 (08:46→21:16)
[2018-01-10] MEDS: ATORVASTATIN 20 MG TAB PO (08:46)
[2018-01-10] MEDS: POTASSIUM CHLORIDE 10 MEQ SR TABLET PO ×2 (08:46→21:16)
[2018-01-10] MEDS: DULoxetine 20 MG CAP (CYMBALTA) PO (08:46)
[2018-01-10] MEDS: FUROSEMIDE 40 MG TAB PO ×2 (08:47→17:24)
[2018-01-10] MEDS: FERROUS GLUCONATE 324 MG TAB PO (08:47)
[2018-01-10] MEDS: CARVedilol 12.5 MG TAB PO ×2 (08:47→21:17)
[2018-01-10] MEDS: OMEPRAZOLE 20 MG CAP PO (08:47)
[2018-01-10] MEDS: ALLOPURINOL 100 MG TAB PO (08:47)
[2018-01-10] MEDS: **hydrALAZINE** 50 MG TAB PO ×4 (08:47→21:16)
[2018-01-10] MEDS: methylPREDNISolone INJ 40 MG/1 ML VIAL (J2920) IV (11:15)
[2018-01-10] MEDS: amLODIPine 10 MG TAB PO (12:21)
[2018-01-10] MEDS: predniSONE 20 MG TAB PO (12:22)
[2018-01-10] MEDS: oxyBUTYnin *DITROPAN XL* 5 MG TABCR PO (21:16)
[2018-01-11] MEDS: IPRATROPIUM 0.5MG/ALBUTEROL 2.5MG INH SOL UD 3ML (DUONEB)(J7620) NEB ×4 (02:00→22:47)
[2018-01-11] MEDS: HEPARIN SOD (PORCINE) 5000 UNITS/ML VIAL SC ×3 (05:27→21:32)
[2018-01-11 05:47] LABS: HEMATOCRIT 35.6 % (36.0-47.0); HEMOGLOBIN 11.5 g/dl (12.0-15.5); MEAN CORPUSCULAR HEMOGLOBIN 25.5 pg (27.0-33.0); MEAN CORPUSCULAR HGB CONC 32.3 g/dl (32.0-36.5); MEAN CORPUSCULAR VOLUME 78.9 fl (80.0-96.0); PLATELET COUNT, AUTOMATED 282 10^3/uL (150-450); RED BLOOD COUNT 4.51 10^6/uL (4.00-5.40); RED CELL DISTRIBUTION WIDTH 17.2 % (11.5-14.5); WHITE BLOOD COUNT 10.7 10^3/uL (4.0-10.0)
[2018-01-11 06:07] LABS: ANION GAP 8 MEQ/L (8-16); BLOOD UREA NITROGEN 34 MG/DL (7-18); CALCIUM LEVEL 9.6 MG/DL (8.8-10.2); CARBON DIOXIDE LEVEL 31 MEQ/L (21-32); CHLORIDE LEVEL 100 MEQ/L (98-107); CREATININE FOR GFR 1.35 MG/DL (0.55-1.30); GLOMERULAR FILTRATION RATE 39.3 (>32); GLUCOSE, FASTING 179 MG/DL (70-100); POTASSIUM SERUM 4.1 MEQ/L (3.5-5.1); SODIUM LEVEL 139 MEQ/L (136-145)
[2018-01-11] MEDS: ADVAIR HFA 115/21MCG INHALER INH ×2 (07:26→22:47)
[2018-01-11] MEDS: ATORVASTATIN 20 MG TAB PO (08:34)
[2018-01-11] MEDS: OMEPRAZOLE 20 MG CAP PO (08:34)
[2018-01-11] MEDS: FERROUS GLUCONATE 324 MG TAB PO (08:34)
[2018-01-11] MEDS: POTASSIUM CHLORIDE 10 MEQ SR TABLET PO ×2 (08:34→21:32)
[2018-01-11] MEDS: DULoxetine 20 MG CAP (CYMBALTA) PO (08:34)
[2018-01-11] MEDS: AUGMENTIN 500 MG TAB PO ×2 (08:34→21:32)
[2018-01-11] MEDS: ALLOPURINOL 100 MG TAB PO (08:34)
[2018-01-11] MEDS: ASPIRIN 325 MG TAB PO (08:34)
[2018-01-11] MEDS: **hydrALAZINE** 50 MG TAB PO ×4 (08:35→21:31)
[2018-01-11] MEDS: CARVedilol 12.5 MG TAB PO ×2 (08:35→21:32)
[2018-01-11] MEDS: FUROSEMIDE 40 MG TAB PO ×2 (08:35→17:13)
[2018-01-11] MEDS: amLODIPine 10 MG TAB PO (12:25)
[2018-01-11] MEDS: oxyBUTYnin *DITROPAN XL* 5 MG TABCR PO (21:31)
[2018-01-12] MEDS: IPRATROPIUM 0.5MG/ALBUTEROL 2.5MG INH SOL UD 3ML (DUONEB)(J7620) NEB ×4 (02:00→20:00)
[2018-01-12 06:10] LABS: HEMATOCRIT 34.3 % (36.0-47.0); HEMOGLOBIN 10.7 g/dl (12.0-15.5); MEAN CORPUSCULAR HEMOGLOBIN 25.2 pg (27.0-33.0); MEAN CORPUSCULAR HGB CONC 31.2 g/dl (32.0-36.5); MEAN CORPUSCULAR VOLUME 80.9 fl (80.0-96.0); PLATELET COUNT, AUTOMATED 272 10^3/uL (150-450); RED BLOOD COUNT 4.24 10^6/uL (4.00-5.40); RED CELL DISTRIBUTION WIDTH 17.3 % (11.5-14.5); WHITE BLOOD COUNT 12.4 10^3/uL (4.0-10.0)
[2018-01-12] MEDS: HEPARIN SOD (PORCINE) 5000 UNITS/ML VIAL SC ×3 (06:15→21:15)
[2018-01-12 06:29] LABS: ANION GAP 7 MEQ/L (8-16); BLOOD UREA NITROGEN 35 MG/DL (7-18); CALCIUM LEVEL 9.5 MG/DL (8.8-10.2); CARBON DIOXIDE LEVEL 34 MEQ/L (21-32); CHLORIDE LEVEL 99 MEQ/L (98-107); CREATININE FOR GFR 1.35 MG/DL (0.55-1.30); GLOMERULAR FILTRATION RATE 39.3 (>32); GLUCOSE, FASTING 130 MG/DL (70-100); SODIUM LEVEL 140 MEQ/L (136-145)
[2018-01-12] MEDS: FERROUS GLUCONATE 324 MG TAB PO (08:49)
[2018-01-12] MEDS: OMEPRAZOLE 20 MG CAP PO (08:49)
[2018-01-12] MEDS: **hydrALAZINE** 50 MG TAB PO ×4 (08:49→21:15)
[2018-01-12] MEDS: POTASSIUM CHLORIDE 10 MEQ SR TABLET PO ×2 (08:49→21:15)
[2018-01-12] MEDS: DULoxetine 20 MG CAP (CYMBALTA) PO (08:50)
[2018-01-12] MEDS: ALLOPURINOL 100 MG TAB PO (08:50)
[2018-01-12] MEDS: CARVedilol 12.5 MG TAB PO ×2 (08:50→21:14)
[2018-01-12] MEDS: ATORVASTATIN 20 MG TAB PO (08:50)
[2018-01-12] MEDS: FUROSEMIDE 40 MG TAB PO ×2 (08:50→16:55)
[2018-01-12] MEDS: AUGMENTIN 500 MG TAB PO ×2 (08:50→21:12)
[2018-01-12] MEDS: ASPIRIN 325 MG TAB PO (08:50)
[2018-01-12] MEDS: ADVAIR HFA 115/21MCG INHALER INH ×2 (09:59→21:31)
[2018-01-12] MEDS: amLODIPine 10 MG TAB PO (12:11)
[2018-01-12] MEDS: oxyBUTYnin *DITROPAN XL* 5 MG TABCR PO (21:14)
[2018-01-13] MEDS: IPRATROPIUM 0.5MG/ALBUTEROL 2.5MG INH SOL UD 3ML (DUONEB)(J7620) NEB ×2 (01:09→07:40)
[2018-01-13] MEDS: HEPARIN SOD (PORCINE) 5000 UNITS/ML VIAL SC (05:46)
[2018-01-13 06:32] LABS: HEMOGLOBIN 11.3 g/dl (12.0-15.5); MEAN CORPUSCULAR HEMOGLOBIN 25.6 pg (27.0-33.0); MEAN CORPUSCULAR HGB CONC 31.4 g/dl (32.0-36.5); MEAN CORPUSCULAR VOLUME 81.6 fl (80.0-96.0); PLATELET COUNT, AUTOMATED 234 10^3/uL (150-450); RED BLOOD COUNT 4.41 10^6/uL (4.00-5.40); RED CELL DISTRIBUTION WIDTH 17.5 % (11.5-14.5); WHITE BLOOD COUNT 12.9 10^3/uL (4.0-10.0)
[2018-01-13 06:37] LABS: ANION GAP 9 MEQ/L (8-16); BLOOD UREA NITROGEN 38 MG/DL (7-18); CALCIUM LEVEL 9.7 MG/DL (8.8-10.2); CARBON DIOXIDE LEVEL 30 MEQ/L (21-32); CHLORIDE LEVEL 101 MEQ/L (98-107); GLOMERULAR FILTRATION RATE 34.8 (>32); GLUCOSE, FASTING 141 MG/DL (70-100); POTASSIUM SERUM 3.9 MEQ/L (3.5-5.1); SODIUM LEVEL 140 MEQ/L (136-145)
[2018-01-13] MEDS: ADVAIR HFA 115/21MCG INHALER INH (07:38)
[2018-01-13] MEDS: POTASSIUM CHLORIDE 10 MEQ SR TABLET PO (08:36)
[2018-01-13] MEDS: FERROUS GLUCONATE 324 MG TAB PO (08:36)
[2018-01-13] MEDS: ATORVASTATIN 20 MG TAB PO (08:37)
[2018-01-13] MEDS: **hydrALAZINE** 50 MG TAB PO ×2 (08:37→12:15)
[2018-01-13] MEDS: AUGMENTIN 500 MG TAB PO (08:37)
[2018-01-13] MEDS: DULoxetine 20 MG CAP (CYMBALTA) PO (08:37)
[2018-01-13] MEDS: ALLOPURINOL 100 MG TAB PO (08:37)
[2018-01-13] MEDS: CARVedilol 12.5 MG TAB PO (08:37)
[2018-01-13] MEDS: ASPIRIN 325 MG TAB PO (08:37)
[2018-01-13] MEDS: OMEPRAZOLE 20 MG CAP PO (08:37)
[2018-01-13] MEDS: amLODIPine 10 MG TAB PO (12:15)
[2018-01-14] MEDS ORDERED: FUROSEMIDE 40 MG TAB PO (09:00)
== END 2018-01-13 12:58 | DRG 193 ==
LOC: M PCU 01-07 00:27 → M MSPAV 01-07 16:15 → M ED 13:35 → M ED INP 18:29 → M PCU 20:52
DX: J15.9 Unspecified bacterial pneumonia (principal); J96.01 Acute respiratory failure with hypoxia; J45.901 Unspecified asthma with (acute) exacerbation; I50.32 Chronic diastolic (congestive) heart failure; I13.0 Hypertensive heart and chronic kidney disease with heart failure and stage 1 through stage 4 chronic kidney disease, or unspecified chronic kidney disease; N18.9 Chronic kidney disease, unspecified; E78.5 Hyperlipidemia, unspecified; I25.10 Atherosclerotic heart disease of native coronary artery without angina pectoris; K21.9 Gastro-esophageal reflux disease without esophagitis; D50.9 Iron deficiency anemia, unspecified; R91.1 Solitary pulmonary nodule; I73.9 Peripheral vascular disease, unspecified; B97.81 Human metapneumovirus as the cause of diseases classified elsewhere; Z95.1 Presence of aortocoronary bypass graft; Z79.899 Other long term (current) drug therapy; Z79.82 Long term (current) use of aspirin; Z88.5 Allergy status to narcotic agent; Z88.8 Allergy status to other drugs, medicaments and biological substances; N32.81 Overactive bladder; Z86.73 Personal history of transient ischemic attack (TIA), and cerebral infarction without residual deficits

== ENCOUNTER → 2018-01-27 | Outpatient (REF) ==
[2018-01-27 09:12] LABS: BASO % 0.5 % (0.0-1.0); EOS # 0.2 10^3/uL (0.0-0.50); EOS % 2.7 % (0.0-3.0); HEMATOCRIT 35.5 % (36.0-47.0); HEMOGLOBIN 10.8 g/dl (12.0-15.5); IMMATURE GRANULOCYTE % 0.6 % (0-3.0); LYMPH # 1.1 10^3/uL (1.5-4.5); LYMPH % 14.4 % (24.0-44.0); MEAN CORPUSCULAR HEMOGLOBIN 25.9 pg (27.0-33.0); MEAN CORPUSCULAR HGB CONC 30.4 g/dl (32.0-36.5); MEAN CORPUSCULAR VOLUME 85.1 fl (80.0-96.0); MONO # 0.6 10^3/uL (0.0-0.8); MONO % 7.4 % (0.0-5.0); NEUTROPHILS # 5.7 10^3/uL (1.8-7.7); NEUTROPHILS % 74.4 % (36.0-66.0); PLATELET COUNT, AUTOMATED 270 10^3/uL (150-450); RED BLOOD COUNT 4.17 10^6/uL (4.00-5.40); RED CELL DISTRIBUTION WIDTH 19.7 % (11.5-14.5); WHITE BLOOD COUNT 7.7 10^3/uL (4.0-10.0)
[2018-01-27 09:30] LABS: ALBUMIN 3.2 GM/DL (3.2-5.2); ANION GAP 9 MEQ/L (8-16); BLOOD UREA NITROGEN 30 MG/DL (7-18); CALCIUM LEVEL 9.7 MG/DL (8.8-10.2); CARBON DIOXIDE LEVEL 28 MEQ/L (21-32); CHLORIDE LEVEL 106 MEQ/L (98-107); CREATININE FOR GFR 1.24 MG/DL (0.55-1.30); GLOMERULAR FILTRATION RATE 43.4 (>32); GLUCOSE, FASTING 154 MG/DL (70-100); MAGNESIUM LEVEL 2.2 MG/DL (1.8-2.4); PHOSPHORUS LEVEL 3.5 MG/DL (2.5-4.9); POTASSIUM SERUM 4.2 MEQ/L (3.5-5.1); SODIUM LEVEL 143 MEQ/L (136-145); URIC ACID 6.2 MG/DL (2.6-6.0)
[2018-01-27 13:57] LABS: APPEARANCE, URINE CLEAR (CLEAR); BACTERIA, URINE AUTO NEGATIVE (NEGATIVE); BILIRUBIN, URINE AUTO NEGATIVE (NEGATIVE); BLOOD, URINE BLOOD NEGATIVE (NEGATIVE); COLOR, URINE YELLOW (YELLOW); GLUCOSE, URINE (UA) AUTO NEGATIVE (NEGATIVE); KETONE, URINE AUTO NEGATIVE (NEGATIVE); LEUKOCYTE ESTERASE, URINE AUTO NEGATIVE (NEGATIVE); NITRITE, URINE AUTO NEGATIVE (NEGATIVE); PROTEIN, URINE AUTO NEGATIVE (NEGATIVE); RBC, URINE AUTO 2 /HPF (0-3); SQUAMOUS EPITHELIAL CELL UR AU 1 /HPF (0-6); UROBILINOGEN, URINE AUTO 0.2 mg/dL (0.0-2.0); WBC, URINE AUTO 1 /HPF (0-3)
== END ==
LOC: SKLAB4 07:14
DX: N28.9 Disorder of kidney and ureter, unspecified (principal)